=== PATIENT | female | born 1960 | race Hispanic/Latino ===

== ENCOUNTER 2022-01-15 18:04 | Inpatient (IN) | payer SELFPAY ==
[~2022-01-15 18:04] MED LIST: Iopamidol 300 61% 100 ML VIAL FS ONE
[2022-01-15 18:46] LABS: #Basophils 0.1 10x3/uL (0.0-0.2); #Eosinphils 0.3 10x3/uL (0.0-0.5); #Monocytes 0.8 10x3/uL (0.0-1.1); #Neutrophils 4.3 10x3/uL (1.5-8.4); %Basophils 1.3 % (0.0-2.0); %Eosinophils 3.7 % (0.0-6.0); %Lymphocytes 28.3 % (18.0-47.0); %Monocytes 10.7 % (0.0-10.0); %Neutrophils 55.6 % (40.0-75.0); Hemoglobin 15.5 g/dL (12.0-15.5); Mean Corpuscular HGB CONC 33.3 g/dL (32.0-36.0); Mean Corpuscular Hemoglobin 28.7 pg (27.0-33.0); Mean Corpuscular Volume 86.1 fl (81.6-98.3); Mean Platelet Volume 10.6 fl (7.4-10.4); Platelet Count 246 10x3/uL (150-450); RBC Distribution Width 14.9 % (11.5-14.5); White Blood Cell (WBC) Count 7.6 10x3/uL (3.5-10.5)
[2022-01-15 18:52] LABS: Bilirubin Neg (Negative); Blood, Urine 10 (Negative); Clarity Slightly Cloudy (Clear); Glucose, Urine (Dipstick) 50 mg/dL (Negative); Ketone, Urine 50 mg/dL (Negative); Leukocyte Negative (Negative); Nitrite Negative (Negative); Protein, Urine (Dipstick) 500 mg/dl (Neg-Trace); Specific Gravity, Urine 1.025 (1.005-1.030)
[2022-01-15 18:55] LABS: ALT (SGPT) 28 U/L (8-55); AST (SGOT) 28 U/L (5-34); Alkaline Phosphatase 215 U/L (40-110); Anion Gap 18 mmol/L (10-20); BUN (Urea Nitrogen) 19 mg/dL (9.8-20.1); Bilirubin, Total 1.1 mg/dL (0.2-1.2); Calc. Creatinine Clearance 0 mL/min (70-130); Carbon Dioxide 20 mmol/L (22-29); Chloride 104 mmol/L (98-107); Estimated GFR 77; Globulin 5.4 g/dL (2.4-3.5); Glucose 159 mg/dL (70-105); Potassium 3.2 mmol/L (3.5-5.1); Protein, Total 9.4 g/dL (6.0-8.3); Sodium 139 mmol/L (136-145)
[2022-01-15 18:59] LABS: RBC/HPF 0-3 HPF (0-3)
[2022-01-15 19:00] LABS: Bacteria/HPF 2+ HPF (None Seen)
[2022-01-15 19:01] LABS: Squamous Epithelial 0-3 HPF (0-3)
[2022-01-15] MEDS ORDERED: Ondansetron PF 4 MG/2 ML Vial ONE (19:19)
[2022-01-15] MEDS ORDERED: Morphine 4 MG/ML VIAL ONE (19:19)
[2022-01-15] MEDS ORDERED: cefTRIAXone\\ROCEPHIN 1 GM VIAL ONE (19:20)
[2022-01-15] MEDS ORDERED: Potassium Chloride 20 MEQ TAB ONE (21:41)
[2022-01-16] MEDS ORDERED: Acetaminophen 325 MG TAB PO PRN (00:20)
[2022-01-16 00:37] VITALS: BMI 29.0
[2022-01-16] MEDS ORDERED: Amlodipine 5 MG TAB PO SCH ×2 (01:00→06:45)
[2022-01-16] MEDS: 1/2 NS w/KCL 20 mEq 1,000 ML IV SCH ×3 (01:11→23:00)
[2022-01-16 02:28] LABS: SARS-CoV-2 NAA Rapid Test Not Detected (NotDetected)
[2022-01-16] MEDS ORDERED: FLU VACC QS2022-23(6MOS UP)/PF 60 MCG/0.5 ML SYRINGE IM ONE (03:45)
[2022-01-16 05:22] LABS: #Basophils 0.1 10x3/uL (0.0-0.2); #Eosinphils 0.3 10x3/uL (0.0-0.5); #Monocytes 0.9 10x3/uL (0.0-1.1); #Neutrophils 4.1 10x3/uL (1.5-8.4); %Basophils 0.9 % (0.0-2.0); %Eosinophils 4.1 % (0.0-6.0); %Lymphocytes 31.3 % (18.0-47.0); %Monocytes 11.2 % (0.0-10.0); %Neutrophils 52.2 % (40.0-75.0); Hemoglobin 14.6 g/dL (12.0-15.5); Mean Corpuscular HGB CONC 33.9 g/dL (32.0-36.0); Mean Corpuscular Hemoglobin 28.9 pg (27.0-33.0); Mean Corpuscular Volume 85.3 fl (81.6-98.3); Platelet Count 207 10x3/uL (150-450); Red Blood Cell (RBC) Count 5.05 10x6/uL (3.90-5.03); White Blood Cell (WBC) Count 7.8 10x3/uL (3.5-10.5)
[2022-01-16 05:50] LABS: Anion Gap 14 mmol/L (10-20); BUN (Urea Nitrogen) 17 mg/dL (9.8-20.1); Calc. Creatinine Clearance 91 mL/min (70-130); Calcium 8.9 mg/dL (7.8-10.44); Carbon Dioxide 20 mmol/L (22-29); Chloride 105 mmol/L (98-107); Estimated GFR 90; Glucose 116 mg/dL (70-105); Magnesium 2.2 mg/dL (1.6-2.6); Potassium 3.6 mmol/L (3.5-5.1); Sodium 135 mmol/L (136-145)
[2022-01-16] MEDS ORDERED: HYDROcodone/Acetaminophen 5/325 mg Tablet PO PRN (08:38)
[2022-01-16] MEDS: Acetaminophen 325 MG TAB PO SCH ×3 (09:36→20:30)
[2022-01-16] MEDS: Enoxaparin Sodium 40 MG/0.4 ML SYRINGE SC SCH (09:38)
[2022-01-16] MEDS ORDERED: Aspirin 81 mg Enteric Coated Tablet PO SCH (14:30)
[2022-01-16] MEDS: Labetalol HCl 100 MG/20 ML VIAL SLOW IVP PRN (18:04)
[2022-01-16] MEDS: cefTRIAXone\\ROCEPHIN 1 GM in Sodium Chloride 0.9% 100 ML IVPB SCH (20:30)
[2022-01-17] MEDS: Labetalol HCl 100 MG/20 ML VIAL SLOW IVP PRN ×2 (00:47→05:48)
[2022-01-17] MEDS: Acetaminophen 325 MG TAB PO SCH ×4 (04:17→20:27)
[2022-01-17 04:47] LABS: ALT (SGPT) 30 U/L (8-55); AST (SGOT) 30 U/L (5-34); Albumin 2.8 g/dL (3.5-5.0); Alkaline Phosphatase 156 U/L (40-110); Anion Gap 11 mmol/L (10-20); BUN (Urea Nitrogen) 15 mg/dL (9.8-20.1); Bilirubin, Total 0.3 mg/dL (0.2-1.2); Calc. Creatinine Clearance 91 mL/min (70-130); Calcium 8.4 mg/dL (7.8-10.44); Carbon Dioxide 21 mmol/L (22-29); Chloride 110 mmol/L (98-107); Estimated GFR 90; Globulin 4.1 g/dL (2.4-3.5); Glucose 142 mg/dL (70-105); Potassium 4.6 mmol/L (3.5-5.1); Protein, Total 6.9 g/dL (6.0-8.3); Sodium 137 mmol/L (136-145)
[2022-01-17 04:56] LABS: #Basophils 0.1 10x3/uL (0.0-0.2); #Eosinphils 0.6 10x3/uL (0.0-0.5); #Monocytes 0.6 10x3/uL (0.0-1.1); #Neutrophils 2.7 10x3/uL (1.5-8.4); %Basophils 1.1 % (0.0-2.0); %Eosinophils 10.1 % (0.0-6.0); %Lymphocytes 36.2 % (18.0-47.0); %Monocytes 9.8 % (0.0-10.0); %Neutrophils 42.6 % (40.0-75.0); Hemoglobin 12.5 g/dL (12.0-15.5); Mean Corpuscular HGB CONC 33.4 g/dL (32.0-36.0); Mean Corpuscular Volume 86.8 fl (81.6-98.3); Mean Platelet Volume 10.4 fl (7.4-10.4); Platelet Count 207 10x3/uL (150-450); RBC Distribution Width 14.9 % (11.5-14.5); Red Blood Cell (RBC) Count 4.31 10x6/uL (3.90-5.03); White Blood Cell (WBC) Count 6.2 10x3/uL (3.5-10.5)
[2022-01-17] MEDS: 1/2 NS w/KCL 20 mEq 1,000 ML IV SCH ×2 (06:43→17:59)
[2022-01-17] MEDS ORDERED: Losartan 25 MG TAB PO SCH (09:00)
[2022-01-17] MEDS ORDERED: Amlodipine 5 MG TAB PO SCH (09:00)
[2022-01-17] MEDS: Amlodipine 10 MG TAB PO SCH (09:48)
[2022-01-17] MEDS: Aspirin 81 mg Enteric Coated Tablet PO SCH (09:48)
[2022-01-17] MEDS: Enoxaparin Sodium 40 MG/0.4 ML SYRINGE SC SCH (09:48)
[2022-01-17] MEDS: Atorvastatin Calcium 40 MG TAB PO SCH (20:26)
[2022-01-17] MEDS: cefTRIAXone\\ROCEPHIN 1 GM in Sodium Chloride 0.9% 100 ML IVPB SCH (20:27)
[2022-01-18] MEDS: Labetalol HCl 100 MG/20 ML VIAL SLOW IVP PRN ×2 (00:20→06:02)
[2022-01-18 05:20] LABS: #Basophils 0.1 10x3/uL (0.0-0.2); #Eosinphils 0.8 10x3/uL (0.0-0.5); #Monocytes 0.9 10x3/uL (0.0-1.1); #Neutrophils 4.7 10x3/uL (1.5-8.4); %Basophils 0.9 % (0.0-2.0); %Eosinophils 8.4 % (0.0-6.0); %Lymphocytes 28.5 % (18.0-47.0); %Monocytes 9.6 % (0.0-10.0); %Neutrophils 52.4 % (40.0-75.0); Hemoglobin 13.2 g/dL (12.0-15.5); Mean Corpuscular Hemoglobin 29.1 pg (27.0-33.0); Mean Corpuscular Volume 85.5 fl (81.6-98.3); Mean Platelet Volume 10.7 fl (7.4-10.4); Platelet Count 204 10x3/uL (150-450); RBC Distribution Width 15.4 % (11.5-14.5); Red Blood Cell (RBC) Count 4.54 10x6/uL (3.90-5.03); White Blood Cell (WBC) Count 8.9 10x3/uL (3.5-10.5)
[2022-01-18 05:22] LABS: Anion Gap 12 mmol/L (10-20); BUN (Urea Nitrogen) 13 mg/dL (9.8-20.1); Calc. Creatinine Clearance 91 mL/min (70-130); Carbon Dioxide 20 mmol/L (22-29); Chloride 109 mmol/L (98-107); Estimated GFR 90; Glucose 145 mg/dL (70-105); Sodium 137 mmol/L (136-145)
[2022-01-18] MEDS: 1/2 NS w/KCL 20 mEq 1,000 ML IV SCH ×2 (05:38→14:07)
[2022-01-18] MEDS: Acetaminophen 325 MG TAB PO SCH ×4 (05:44→21:22)
[2022-01-18] MEDS: Aspirin 81 mg Enteric Coated Tablet PO SCH (08:18)
[2022-01-18] MEDS: Amlodipine 10 MG TAB PO SCH (08:18)
[2022-01-18] MEDS: Enoxaparin Sodium 40 MG/0.4 ML SYRINGE SC SCH (08:19)
[2022-01-18] MEDS: Losartan Potassium 50 MG TAB PO SCH (08:28)
[2022-01-18] MEDS: Atorvastatin Calcium 40 MG TAB PO SCH (21:22)
[2022-01-19] MEDS: 1/2 NS w/KCL 20 mEq 1,000 ML IV SCH ×2 (00:39→11:12)
[2022-01-19] MEDS: Acetaminophen 325 MG TAB PO SCH ×4 (03:39→21:11)
[2022-01-19 04:59] LABS: Anion Gap 14 mmol/L (10-20); BUN (Urea Nitrogen) 17 mg/dL (9.8-20.1); Calc. Creatinine Clearance 76 mL/min (70-130); Calcium 9.1 mg/dL (7.8-10.44); Carbon Dioxide 19 mmol/L (22-29); Chloride 107 mmol/L (98-107); Estimated GFR 73; Glucose 209 mg/dL (70-105); Magnesium 2.1 mg/dL (1.6-2.6); Potassium 4.5 mmol/L (3.5-5.1); Sodium 135 mmol/L (136-145)
[2022-01-19] MEDS: Enoxaparin Sodium 40 MG/0.4 ML SYRINGE SC SCH (11:13)
[2022-01-19] MEDS: Labetalol HCl 100 MG/20 ML VIAL SLOW IVP PRN (11:13)
[2022-01-19] MEDS: Losartan Potassium 50 MG TAB PO SCH ×2 (11:14→21:11)
[2022-01-19] MEDS: Aspirin 81 mg Enteric Coated Tablet PO SCH (11:14)
[2022-01-19] MEDS: Amlodipine 10 MG TAB PO SCH (11:14)
[2022-01-19] MEDS: Carvedilol 3.125 MG TAB PO SCH (15:13)
[2022-01-19] MEDS: Atorvastatin Calcium 40 MG TAB PO SCH (21:10)
[2022-01-20] MEDS: Acetaminophen 325 MG TAB PO SCH ×4 (03:54→20:21)
[2022-01-20 05:01] LABS: Anion Gap 14 mmol/L (10-20); BUN (Urea Nitrogen) 21 mg/dL (9.8-20.1); Calc. Creatinine Clearance 77 mL/min (70-130); Calcium 9.4 mg/dL (7.8-10.44); Carbon Dioxide 19 mmol/L (22-29); Cardiac Risk 4.2 (Less than 4.5); Chloride 107 mmol/L (98-107); Cholesterol 168 mg/dl (< 200 Desired); Estimated GFR 75; Glucose 159 mg/dL (70-105); HDL Cholesterol 40 mg/dL (>60 Neg Risk); LDL Cholesterol, Calculated 97 mg/dL; Potassium 4.8 mmol/L (3.5-5.1); Sodium 135 mmol/L (136-145); Triglycerides 157 mg/dL (Less than 150)
[2022-01-20] MEDS: Clopidogrel Bisulfate 75 MG TAB PO SCH (10:34)
[2022-01-20] MEDS: Carvedilol 3.125 MG TAB PO SCH ×2 (10:34→19:48)
[2022-01-20] MEDS: Losartan Potassium 50 MG TAB PO SCH ×2 (10:34→20:20)
[2022-01-20] MEDS: Amlodipine 10 MG TAB PO SCH (10:34)
[2022-01-20] MEDS: Aspirin 81 mg Enteric Coated Tablet PO SCH (10:34)
[2022-01-20] MEDS: Enoxaparin Sodium 40 MG/0.4 ML SYRINGE SC SCH (10:36)
[2022-01-20] MEDS: Atorvastatin Calcium 40 MG TAB PO SCH (20:21)
[2022-01-21] MEDS: Acetaminophen 325 MG TAB PO SCH ×4 (03:12→20:52)
[2022-01-21] MEDS: Enoxaparin Sodium 40 MG/0.4 ML SYRINGE SC SCH (09:59)
[2022-01-21] MEDS: Clopidogrel Bisulfate 75 MG TAB PO SCH (10:00)
[2022-01-21] MEDS: Aspirin 81 mg Enteric Coated Tablet PO SCH (10:00)
[2022-01-21] MEDS: Amlodipine 10 MG TAB PO SCH (10:01)
[2022-01-21] MEDS: Losartan Potassium 50 MG TAB PO SCH ×2 (10:01→20:52)
[2022-01-21] MEDS: Carvedilol 6.25 MG TAB PO SCH ×3 (10:05→10:06)
[2022-01-21] MEDS: Carvedilol 3.125 MG TAB PO SCH (10:41)
[2022-01-21 12:37] LABS: A/G Ratio 0.6 (0.7-1.7); Albumin 3.3 g/dL (2.9-4.4); Alpha 1 0.4 g/dL (0.0-0.4); Alpha 2 0.9 g/dL (0.4-1.0); Beta 1.4 g/dL (0.7-1.3); Gamma 2.9 g/dL (0.4-1.8); Globulin, Total 5.5 g/dL (2.2-3.9); M-Spike Not Observed g/dL (Not Observed)
[2022-01-21] MEDS: Atorvastatin Calcium 40 MG TAB PO SCH (20:52)
[2022-01-22] MEDS: Acetaminophen 325 MG TAB PO SCH ×3 (05:50→15:35)
[2022-01-22] MEDS: Enoxaparin Sodium 40 MG/0.4 ML SYRINGE SC SCH (08:55)
[2022-01-22] MEDS: Clopidogrel Bisulfate 75 MG TAB PO SCH (08:56)
[2022-01-22] MEDS: Losartan Potassium 50 MG TAB PO SCH (08:56)
[2022-01-22] MEDS: Aspirin 81 mg Enteric Coated Tablet PO SCH (08:56)
[2022-01-22] MEDS: Carvedilol 6.25 MG TAB PO SCH (08:56)
[2022-01-22] MEDS: Amlodipine 10 MG TAB PO SCH (08:57)
[2022-01-22 15:19] VITALS: BP 146/72; TEMP 97.6
== END 2022-01-22 16:16 | disposition home or self-care (01) | DRG 65 ==
LOC: CSHERS 18:04 → CSHTELE 01-16 00:20 → OBSVTOIN 01-16 14:07
PROVIDERS: ADMIT Family Medicine; ATTEND Hospitalist
DX: I63.9 Cerebral infarction, unspecified (principal); G81.91 Hemiplegia, unspecified affecting right dominant side; N39.0 Urinary tract infection, site not specified; I10 Essential (primary) hypertension; M54.50 Low back pain, unspecified; E87.6 Hypokalemia; I16.0 Hypertensive urgency; Z20.822 Contact with and (suspected) exposure to COVID-19; E11.65 Type 2 diabetes mellitus with hyperglycemia; Z90.49 Acquired absence of other specified parts of digestive tract; Z79.899 Other long term (current) drug therapy; Z79.02 Long term (current) use of antithrombotics/antiplatelets
CPT/HCPCS: 36415; 70551; 71045; 74177; 80048; 80053; 80061; 81003; 81015; 83036; 83605; 83735; 84155; 84165; 84484; 85025; 87040; 87086; 93005; 93306; 93880; 96361; 96372; 96374; 96375; G0378; J0696; J1650; J2270; J2405; J3480; J3490; Q9967; U0002

== ENCOUNTER 2022-01-24 22:32 | Emergency (ER) | payer SELFPAY ==
[2022-01-25] MEDS ORDERED: Fentanyl 100 MCG/2 ML VIAL ONE (00:57)
[2022-01-25 02:27] LABS: #Basophils 0.1 10x3/uL (0.0-0.2); #Eosinphils 0.5 10x3/uL (0.0-0.5); #Monocytes 0.7 10x3/uL (0.0-1.1); #Neutrophils 5.4 10x3/uL (1.5-8.4); %Basophils 0.6 % (0.0-2.0); %Lymphocytes 28.7 % (18.0-47.0); %Monocytes 7.6 % (0.0-10.0); %Neutrophils 57.8 % (40.0-75.0); Hemoglobin 15.7 g/dL (12.0-15.5); Mean Corpuscular HGB CONC 34.1 g/dL (32.0-36.0); Mean Corpuscular Hemoglobin 29.2 pg (27.0-33.0); Mean Corpuscular Volume 85.8 fl (81.6-98.3); Mean Platelet Volume 10.9 fl (7.4-10.4); Platelet Count 152 10x3/uL (150-450); RBC Distribution Width 15.5 % (11.5-14.5); Red Blood Cell (RBC) Count 5.37 10x6/uL (3.90-5.03); White Blood Cell (WBC) Count 9.4 10x3/uL (3.5-10.5)
[2022-01-25 02:34] LABS: ALT (SGPT) 50 U/L (8-55); AST (SGOT) 38 U/L (5-34); Albumin 3.6 g/dL (3.5-5.0); Alkaline Phosphatase 351 U/L (40-110); Anion Gap 15 mmol/L (10-20); BUN (Urea Nitrogen) 25 mg/dL (9.8-20.1); Bilirubin, Total 0.5 mg/dL (0.2-1.2); Calc. Creatinine Clearance 0 mL/min (70-130); Calcium 9.4 mg/dL (7.8-10.44); Carbon Dioxide 18 mmol/L (22-29); Chloride 107 mmol/L (98-107); Estimated GFR 86; Globulin 5.1 g/dL (2.4-3.5); Glucose 135 mg/dL (70-105); Lipase 49 U/L (8-78); Potassium 4.2 mmol/L (3.5-5.1); Protein, Total 8.7 g/dL (6.0-8.3); Sodium 136 mmol/L (136-145)
[2022-01-25 04:34] LABS: Bilirubin Neg (Negative); Blood, Urine 10 (Negative); Clarity Clear (Clear); Glucose, Urine (Dipstick) Normal (Negative); Ketone, Urine Negative (Negative); Leukocyte Negative (Negative); Nitrite Negative (Negative); Protein, Urine (Dipstick) 15 mg/dl (Neg-Trace); Specific Gravity, Urine 1.005 (1.005-1.030)
[2022-01-25 04:39] LABS: Bacteria/HPF None Seen HPF (None Seen); RBC/HPF 0-3 HPF (0-3); Squamous Epithelial 0-3 HPF (0-3); WBC/HPF None Seen HPF (0-3)
[2022-01-25] MEDS ORDERED: Iopamidol 370 76% 100 ML VIAL ONE (11:32)
== END 2022-01-25 05:01 | disposition home or self-care (01) ==
LOC: CSHERS 22:32
DX: R07.89 Other chest pain (principal); I10 Essential (primary) hypertension
CPT/HCPCS: 36415; 71045; 71275; 80053; 81003; 81015; 83690; 83880; 84484; 85025; 85379; 93005; 96374; J3010; Q9967

== ENCOUNTER 2022-03-09 09:19 | Inpatient (IN) | payer MEDICAID, SELFPAY ==
[2022-03-09 09:44] LABS: #Basophils 0.1 10x3/uL (0.0-0.2); #Eosinphils 0.5 10x3/uL (0.0-0.5); #Monocytes 0.7 10x3/uL (0.0-1.1); #Neutrophils 4.9 10x3/uL (1.5-8.4); %Basophils 1.3 % (0.0-2.0); %Eosinophils 5.8 % (0.0-6.0); %Lymphocytes 28.2 % (18.0-47.0); %Neutrophils 56.4 % (40.0-75.0); Hemoglobin 15.5 g/dL (12.0-15.5); Mean Corpuscular HGB CONC 34.1 g/dL (32.0-36.0); Mean Corpuscular Hemoglobin 29.8 pg (27.0-33.0); Mean Corpuscular Volume 87.3 fl (81.6-98.3); Mean Platelet Volume 10.1 fl (7.4-10.4); Platelet Count 314 10x3/uL (150-450); RBC Distribution Width 14.4 % (11.5-14.5); White Blood Cell (WBC) Count 8.6 10x3/uL (3.5-10.5)
[2022-03-09 09:54] LABS: ALT (SGPT) 27 U/L (8-55); AST (SGOT) 30 U/L (5-34); Alkaline Phosphatase 188 U/L (40-110); Anion Gap 20 mmol/L (10-20); BUN (Urea Nitrogen) 16 mg/dL (9.8-20.1); Bilirubin, Total 0.6 mg/dL (0.2-1.2); Calc. Creatinine Clearance 0 mL/min (70-130); Calcium 10.2 mg/dL (7.8-10.44); Carbon Dioxide 20 mmol/L (22-29); Chloride 104 mmol/L (98-107); Estimated GFR 69; Globulin 4.9 g/dL (2.4-3.5); Glucose 210 mg/dL (70-105); Potassium 4.9 mmol/L (3.5-5.1); Protein, Total 8.9 g/dL (6.0-8.3); Sodium 139 mmol/L (136-145)
[2022-03-09] MEDS ORDERED: hydrALAZINE 20 MG/ML VIAL ONE (10:05)
[2022-03-09 10:41] LABS: INR-International Normal Ratio 0.9; PTT 21.6 sec (22.0-33.0)
[2022-03-09] MEDS ORDERED: Aspirin 325 MG TAB ONE (11:07)
[2022-03-09] MEDS ORDERED: Aspirin 300 MG Suppository ONE (11:14)
[2022-03-09] MEDS ORDERED: Ondansetron PF 4 MG/2 ML Vial ONE (11:35)
[2022-03-09] MEDS ORDERED: Dextrose 5% in Water 1,000 ML IV PRN (13:13)
[2022-03-09] MEDS ORDERED: Dextrose 50% Abboject 50 ML SYRINGE SLOW IVP PRN (13:13)
[2022-03-09] MEDS ORDERED: HumaLOG 300 UNITS/3 ML VIAL SC PRN (13:13)
[2022-03-09] MEDS ORDERED: Ondansetron PF 4 MG/2 ML Vial IVP PRN (13:23)
[2022-03-09] MEDS ORDERED: Ondansetron ODT 4 MG TAB PO PRN (13:23)
[2022-03-09] MEDS ORDERED: Senokot S 8.6-50 MG TAB PO PRN (13:23)
[2022-03-09 14:56] LABS: Bilirubin Neg (Negative); Blood, Urine Negative (Negative); Clarity Clear (Clear); Glucose, Urine (Dipstick) 250 mg/dL (Negative); Ketone, Urine 5 mg/dL (Negative); Leukocyte Negative (Negative); Nitrite Negative (Negative); Protein, Urine (Dipstick) 100 mg/dl (Neg-Trace); Urobilinogen Normal mg/dL (Less than 2)
[2022-03-09] MEDS ORDERED: Iopamidol 370 76% 100 ML VIAL ONE (15:06)
[2022-03-09 15:09] LABS: Bacteria/HPF None Seen HPF (None Seen); RBC/HPF None Seen HPF (0-3); Squamous Epithelial None Seen HPF (0-3); WBC/HPF None Seen HPF (0-3)
[2022-03-09] MEDS: HumaLOG 300 UNITS/3 ML VIAL SC PRN (16:26)
[2022-03-09 17:00] LABS: SARS-CoV-2 NAA Rapid Test Not Detected (NotDetected)
[2022-03-09] MEDS ORDERED: FLU VACC QS2022-23(6MOS UP)/PF 60 MCG/0.5 ML SYRINGE IM ONE (17:00)
[2022-03-09 20:47] VITALS: BMI 25.5
[2022-03-09] MEDS: Atorvastatin Calcium 40 MG TAB PO SCH (20:52)
[2022-03-09] MEDS: Acetaminophen 325 MG TAB PO PRN (20:53)
[2022-03-09] MEDS: Famotidine 20 MG TAB PO SCH (20:53)
[2022-03-10 04:53] LABS: #Basophils 0.1 10x3/uL (0.0-0.2); #Eosinphils 0.6 10x3/uL (0.0-0.5); #Monocytes 0.7 10x3/uL (0.0-1.1); #Neutrophils 3.6 10x3/uL (1.5-8.4); %Eosinophils 7.7 % (0.0-6.0); %Lymphocytes 36.2 % (18.0-47.0); %Monocytes 8.5 % (0.0-10.0); %Neutrophils 46.3 % (40.0-75.0); Hemoglobin 14.4 g/dL (12.0-15.5); Mean Corpuscular HGB CONC 33.8 g/dL (32.0-36.0); Mean Corpuscular Hemoglobin 29.1 pg (27.0-33.0); Mean Corpuscular Volume 86.2 fl (81.6-98.3); Mean Platelet Volume 10.1 fl (7.4-10.4); Platelet Count 287 10x3/uL (150-450); RBC Distribution Width 14.7 % (11.5-14.5); Red Blood Cell (RBC) Count 4.94 10x6/uL (3.90-5.03); White Blood Cell (WBC) Count 7.8 10x3/uL (3.5-10.5)
[2022-03-10 05:03] LABS: Anion Gap 14 mmol/L (10-20); BUN (Urea Nitrogen) 15 mg/dL (9.8-20.1); Calc. Creatinine Clearance 69 mL/min (70-130); Calcium 9.9 mg/dL (7.8-10.44); Carbon Dioxide 21 mmol/L (22-29); Cardiac Risk 4.4 (Less than 4.5); Chloride 103 mmol/L (98-107); Cholesterol 182 mg/dl (< 200 Desired); Estimated GFR 82; Glucose 144 mg/dL (70-105); HDL Cholesterol 41 mg/dL (>60 Neg Risk); LDL Cholesterol, Calculated 116 mg/dL; Potassium 3.4 mmol/L (3.5-5.1); Sodium 135 mmol/L (136-145); Triglycerides 124 mg/dL (Less than 150)
[2022-03-10] MEDS: Aspirin 81 mg Enteric Coated Tablet PO SCH (08:55)
[2022-03-10] MEDS: Famotidine 20 MG TAB PO SCH ×2 (08:55→21:06)
[2022-03-10] MEDS: Acetaminophen 325 MG TAB PO PRN (08:55)
[2022-03-10] MEDS: Clopidogrel Bisulfate 75 MG TAB PO SCH (08:55)
[2022-03-10] MEDS ORDERED: Potassium Bicarbonate/Cit Ac 20 MEQ TAB PO SCH (09:00)
[2022-03-10] MEDS: HumaLOG 300 UNITS/3 ML VIAL SC PRN (10:56)
[2022-03-10] MEDS: Carvedilol 6.25 MG TAB PO SCH (17:22)
[2022-03-10] MEDS: Atorvastatin Calcium 40 MG TAB PO SCH (21:06)
[2022-03-11 05:09] LABS: #Basophils 0.1 10x3/uL (0.0-0.2); #Eosinphils 0.7 10x3/uL (0.0-0.5); #Monocytes 0.7 10x3/uL (0.0-1.1); #Neutrophils 3.8 10x3/uL (1.5-8.4); %Basophils 1.2 % (0.0-2.0); %Eosinophils 8.3 % (0.0-6.0); %Monocytes 7.8 % (0.0-10.0); %Neutrophils 45.6 % (40.0-75.0); Hemoglobin 13.8 g/dL (12.0-15.5); Mean Corpuscular HGB CONC 33.6 g/dL (32.0-36.0); Mean Corpuscular Hemoglobin 28.8 pg (27.0-33.0); Mean Corpuscular Volume 85.6 fl (81.6-98.3); Mean Platelet Volume 10.1 fl (7.4-10.4); Platelet Count 289 10x3/uL (150-450); RBC Distribution Width 14.6 % (11.5-14.5); White Blood Cell (WBC) Count 8.3 10x3/uL (3.5-10.5)
[2022-03-11 05:22] LABS: Anion Gap 15 mmol/L (10-20); BUN (Urea Nitrogen) 20 mg/dL (9.8-20.1); Calc. Creatinine Clearance 68 mL/min (70-130); Calcium 9.6 mg/dL (7.8-10.44); Carbon Dioxide 22 mmol/L (22-29); Chloride 105 mmol/L (98-107); Estimated GFR 81; Glucose 138 mg/dL (70-105); Potassium 3.7 mmol/L (3.5-5.1); Sodium 138 mmol/L (136-145)
[2022-03-11] MEDS: Clopidogrel Bisulfate 75 MG TAB PO SCH (10:52)
[2022-03-11] MEDS: Losartan Potassium 50 MG TAB PO SCH (10:53)
[2022-03-11] MEDS: Aspirin 81 mg Enteric Coated Tablet PO SCH (10:53)
[2022-03-11] MEDS: Famotidine 20 MG TAB PO SCH ×2 (10:53→21:18)
[2022-03-11] MEDS: Carvedilol 6.25 MG TAB PO SCH ×2 (10:54→18:17)
[2022-03-11] MEDS: Atorvastatin Calcium 40 MG TAB PO SCH (21:18)
[2022-03-12] MEDS: Clopidogrel Bisulfate 75 MG TAB PO SCH (09:35)
[2022-03-12] MEDS: Sertraline 25 MG TAB PO SCH (09:35)
[2022-03-12] MEDS: Famotidine 20 MG TAB PO SCH ×2 (09:35→20:39)
[2022-03-12] MEDS: Aspirin 81 mg Enteric Coated Tablet PO SCH (09:35)
[2022-03-12] MEDS: Amlodipine 10 MG TAB PO SCH (09:35)
[2022-03-12] MEDS: Carvedilol 6.25 MG TAB PO SCH ×2 (09:35→17:25)
[2022-03-12] MEDS: Losartan Potassium 50 MG TAB PO SCH (09:36)
[2022-03-12] MEDS: HumaLOG 300 UNITS/3 ML VIAL SC PRN (11:40)
[2022-03-12] MEDS: Atorvastatin Calcium 40 MG TAB PO SCH (20:39)
[2022-03-12] MEDS: Acetaminophen 325 MG TAB PO PRN (20:39)
[2022-03-13] MEDS ORDERED: hydrALAZINE 25 MG TAB PO PRN (07:34)
[2022-03-13] MEDS ORDERED: Losartan Potassium 50 MG TAB PO SCH (09:00)
[2022-03-13] MEDS: Aspirin 81 mg Enteric Coated Tablet PO SCH (09:58)
[2022-03-13] MEDS: Sertraline 25 MG TAB PO SCH (09:58)
[2022-03-13] MEDS: Amlodipine 10 MG TAB PO SCH (09:58)
[2022-03-13] MEDS: Clopidogrel Bisulfate 75 MG TAB PO SCH (09:59)
[2022-03-13] MEDS: Carvedilol 6.25 MG TAB PO SCH ×2 (09:59→16:30)
[2022-03-13] MEDS: Famotidine 20 MG TAB PO SCH (09:59)
[2022-03-13 19:59] VITALS: BP 160/82; TEMP 98.4
== END 2022-03-13 18:45 | disposition home or self-care (01) | DRG 101 ==
LOC: CSHERS 09:19 → CSHTELE 11:36
PROVIDERS: ADMIT Family Medicine; ATTEND Internal Medicine
DX: R56.9 Unspecified convulsions (principal); G93.40 Encephalopathy, unspecified; I69.354 Hemiplegia and hemiparesis following cerebral infarction affecting left non-dominant side; E78.5 Hyperlipidemia, unspecified; F41.9 Anxiety disorder, unspecified; I16.0 Hypertensive urgency; E11.65 Type 2 diabetes mellitus with hyperglycemia; Z20.822 Contact with and (suspected) exposure to COVID-19; Z79.82 Long term (current) use of aspirin; Z87.891 Personal history of nicotine dependence; Z79.899 Other long term (current) drug therapy; Z79.84 Long term (current) use of oral hypoglycemic drugs; Z90.49 Acquired absence of other specified parts of digestive tract
CPT/HCPCS: 0042T; 36415; 36416; 70450; 70551; 71045; 72125; 80048; 80053; 80061; 81003; 81015; 84484; 85025; 85610; 85730; 87086; 93005; 93306; 94760; 96374; J0360; J1815; J2405; Q9967